=== PATIENT | male | born 1945 | race Caucasian/White ===

== ENCOUNTER 2020-10-06 06:59 | Day surgery (SDC) | payer MEDICARE ==
[2020-10-05 08:43] LABS: BASOPHILS % (AUTO) 0.6 % (0-1); EOSINOPHILS # (AUTO) 0.1 X10'3 (0-0.9); EOSINOPHILS % (AUTO) 2.2 % (0-6); HEMATOCRIT 45.2 % (42.0-52.0); HEMOGLOBIN 15.3 g/dl (14.0-17.9); LYMPHOCYTES # (AUTO) 1.2 X10'3 (1.1-4.8); LYMPHOCYTES % (AUTO) 22.8 % (21-51); MEAN CORPUSCULAR HEMOGLOBIN 31.2 PG (27.0-31.0); MEAN CORPUSCULAR HGB CONC 33.7 g/dL (33.0-36.5); MEAN CORPUSCULAR VOLUME 92.5 FL (78-98); MEAN PLATELET VOLUME 7.8 FL (7.4-10.4); MONOCYTES # (AUTO) 0.6 X10'3 (0-0.9); MONOCYTES % (AUTO) 10.9 % (2-12); NEUTROPHILS # (AUTO) 3.3 X10'3 (1.8-7.7); NEUTROPHILS % (AUTO) 63.5 % (42-75); PLATELET COUNT 219 X10'3 (140-440); RED BLOOD COUNT 4.89 X10'6 (4.70-6.10); RED CELL DISTRIBUTION WIDTH 13.3 % (11.5-14.5); WHITE BLOOD COUNT 5.2 X10'3 (4.5-11.0)
[2020-10-05 08:56] LABS: ALBUMIN 3.7 G/DL (3.4-5.0); ANION GAP 9 (8-16); BLOOD UREA NITROGEN 28 MG/DL (7-18); BUN/CREATININE RATIO 32.6 (5.4-32.0); CALCIUM 9.4 MG/DL (8.5-10.1); CHLORIDE 104 MMOL/L (99-107); CREATININE 0.86 MG/DL (0.60-1.10); GLUCOSE 122 MG/DL (70-104); POTASSIUM 4.1 MMOL/L (3.5-5.1); SODIUM 141 MMOL/L (135-145); eGFR 87 ML/MIN
[2020-10-05 08:59] LABS: PARTIAL THROMBOPLASTIN TIME 26 SECONDS (22-32)
[~2020-10-06] VITALS: Ht 167.6 cm; Wt 76.9 kg
[2020-10-06] VITALS (14 sets, daily range): BP systolic 91–168; BP diastolic 58–82
[2020-10-06] MEDS ORDERED: LORazepam 0.5 MG tablet PO PRN (07:15)
[2020-10-06] MEDS ORDERED: diphenhydrAMINE 25mg capsule PO PRN (07:15)
[2020-10-06] MEDS ORDERED: normal saline 1,000 ML IV SCH (07:15)
[2020-10-06] MEDS ORDERED: MULT-227 PO (07:17)
[2020-10-06] MEDS ORDERED: VITA-268 PO (07:17)
[2020-10-06] MEDS ORDERED: FOSI20TA97 PO (07:17)
[2020-10-06] MEDS ORDERED: ATOR20TA PO (07:17)
[2020-10-06] MEDS ORDERED: ASPI-1265 PO (07:17)
[2020-10-06] MEDS ORDERED: nitroGLYCERIN-Tridil 50MG/D5W 250 ML IV ONE (07:22)
[2020-10-06] MEDS ORDERED: fentaNYL/PF 50MCG/1 ML 2ML syringe ONE (07:23)
[2020-10-06] MEDS ORDERED: verapamil 2.5 mg/ml inj IV ONE (07:23)
[2020-10-06] MEDS ORDERED: heparin 1,000unit/ml 10ml vial 10 ML ONE (07:23)
[2020-10-06] MEDS ORDERED: LIDOcaine 1% (10mg/ml)w/preservative injection 20ml MDV ONE (07:23)
[2020-10-06] MEDS ORDERED: midazolam 1 mg/ML 2ml injection ONE (07:23)
[2020-10-06] MEDS ORDERED: IOHEXOL 350 MG/ML INFUS..BTL 75ML IV ONE ×2 (07:24→09:38)
[2020-10-06] MEDS ORDERED: iohexol 350MG/ML 100ml bottle IV ONE ×2 (07:24→09:00)
[2020-10-06] MEDS ORDERED: LIDOcaine/PRILOcaine 5gm cream TP ONE ×2 (07:30→07:44)
[2020-10-06] MEDS ORDERED: diphenhydrAMINE 25mg capsule PO ONE (07:44)
[2020-10-06] MEDS ORDERED: LORazepam 0.5 MG tablet ONE (07:44)
[2020-10-06] MEDS ORDERED: heparin 25,000 UNIT/250ml bag 250 ML IV ONE (09:00)
[2020-10-06] MEDS ORDERED: clopidogrel 300mg tablet ONE (09:56)
[2020-10-06 10:21] LABS: ISTAT HGB ART 15.3 g/dl (14.0-18.0); ISTAT Hct ART 45 %PCV (42-52); ISTAT O2 SATURATION ARTERIAL 94 % (95-98); ISTAT SOURCE ART
[2020-10-06] MEDS ORDERED: HYDROcodone/acetaminophen 5mg/325mg tablet PO PRN (10:30)
[2020-10-06] MEDS ORDERED: HYDROcodone/acetaminophen 10/325mg tab PO PRN (10:30)
[2020-10-07 08:49] LABS: ISTAT Hct MIX 43 %PCV (42-52); ISTAT O2 SATURATION MIX VENOUS 71 % (60-80); ISTAT SOURCE VEN
== END 2020-10-06 17:52 | disposition home or self-care (01) ==
LOC: SSTAY O 06:59
PROVIDERS: ATTEND Internal Medicine Cardiovascular Disease
DX: R94.39 Abnormal result of other cardiovascular function study (principal); R06.02 Shortness of breath; I25.118 Atherosclerotic heart disease of native coronary artery with other forms of angina pectoris; I10 Essential (primary) hypertension; E78.49 Other hyperlipidemia; I35.0 Nonrheumatic aortic (valve) stenosis; Q21.1 Atrial septal defect; Z98.890 Other specified postprocedural states; Z72.89 Other problems related to lifestyle; Z79.899 Other long term (current) drug therapy; Z79.82 Long term (current) use of aspirin; Z80.9 Family history of malignant neoplasm, unspecified; Z83.1 Family history of other infectious and parasitic diseases
CPT/HCPCS: 36415; 76937; 80048; 82803; 85014; 85025; 85347; 85610; 85730; 93005; 93460; 99152; 99153; C1725; C1751; C1769; C1874; C1894; C9600; J1644; J2001; J2250; J3010; J7030; Q0163; Q9967; A4620; A5120; A6258; J3490

== ENCOUNTER 2024-04-16 06:03 | Day surgery (SDC) | payer MEDICARE ==
[2024-04-15 11:25] LABS: BASOPHILS % (AUTO) 0.3 % (0-1); EOSINOPHILS # (AUTO) 0.1 X10'3 (0-0.9); EOSINOPHILS % (AUTO) 0.9 % (0-6); HEMATOCRIT 42.9 % (42.0-52.0); HEMOGLOBIN 14.4 g/dl (14.0-17.9); LYMPHOCYTES # (AUTO) 1.1 X10'3 (1.1-4.8); LYMPHOCYTES % (AUTO) 14.9 % (21-51); MEAN CORPUSCULAR HEMOGLOBIN 31.9 PG (27.0-31.0); MEAN CORPUSCULAR HGB CONC 33.5 g/dL (33.0-36.5); MEAN CORPUSCULAR VOLUME 95.3 FL (78-98); MONOCYTES # (AUTO) 0.8 X10'3 (0-0.9); MONOCYTES % (AUTO) 10.3 % (2-12); NEUTROPHILS # (AUTO) 5.5 X10'3 (1.8-7.7); NEUTROPHILS % (AUTO) 73.6 % (42-75); PLATELET COUNT 290 X10'3 (140-440); WHITE BLOOD COUNT 7.5 X10'3 (4.5-11.0)
[2024-04-15 11:32] LABS: ALBUMIN 3.1 G/DL (3.4-5.0); ANION GAP 6 (8-16); BLOOD UREA NITROGEN 23 MG/DL (7-18); BUN/CREATININE RATIO 25.3 (10.0-20.0); CALCIUM 9.3 MG/DL (8.5-10.1); CHLORIDE 103 MMOL/L (99-107); CREATININE 0.91 MG/DL (0.60-1.10); GLUCOSE 102 MG/DL (70-104); POTASSIUM 3.9 MMOL/L (3.5-5.1); SODIUM 139 MMOL/L (135-145); TOTAL CARBON DIOXIDE 30.5 MMOL/L (24-32); eGFR 80 ML/MIN
[2024-04-15 11:48] LABS: APTT 25 SECONDS (22-32); INR 1.1 INR; PROTHROMBIN TIME 11.1 SECONDS (9.0-12.0)
[2024-04-16] VITALS (13 sets, daily range): BP systolic 123–143; BP diastolic 70–94; PULSE 58–71; RESP 12–17; TEMP 98; O2SAT 93–98
[~2024-04-16] VITALS: Ht 165.1 cm; Wt 77.9 kg
[~2024-04-16 06:03] MED LIST: ASPI-1265 PO; ATOR20TA PO; FOSI20TA97 PO; MULT-227 PO; VITA-268 PO
[2024-04-16] MEDS ORDERED: UBID200C18 PO (06:29)
[2024-04-16] MEDS ORDERED: CLOP75TA34 PO (06:29)
[2024-04-16] MEDS ORDERED: KRIL1CAP PO (06:29)
[2024-04-16] MEDS ORDERED: METO-395 PO (06:29)
[2024-04-16] MEDS ORDERED: LUTE1CAP5 PO (06:29)
[2024-04-16] MEDS: diphenhydrAMINE 25mg capsule PO PRN (07:31)
[2024-04-16] MEDS: normal saline 1,000 ML IV SCH (07:31)
[2024-04-16] MEDS: LORazepam 0.5 MG tablet PO PRN (07:31)
[2024-04-16] MEDS ORDERED: verapamil 2.5 mg/ml inj IV ONE (07:47)
[2024-04-16] MEDS ORDERED: LIDOcaine 1% (10mg/ml) 2ml vial ONE (07:47)
[2024-04-16] MEDS ORDERED: midazolam 1 mg/ML 2ml injection ONE (07:48)
[2024-04-16] MEDS ORDERED: fentaNYL/PF 50MCG/1 ML 2ML syringe ONE (07:48)
[2024-04-16] MEDS ORDERED: iohexol 350 MG/ML 50ML vial IV ONE (07:48)
[2024-04-16] MEDS ORDERED: heparin 1,000unit/ml 10ml vial 10 ML ONE (07:48)
[2024-04-16] MEDS ORDERED: iohexol 350MG/ML 100ml bottle IV ONE (07:48)
[2024-04-16] MEDS ORDERED: nitroGLYCERIN 500mcg/5mL D5W 5 ML IV ONE (07:52)
[2024-04-16] MEDS ORDERED: LIDOcaine 1% 30ml preserv. free vial ONE (08:33)
[2024-04-16 09:02] LABS: ISTAT HGB ART 13.9 g/dl (14.0-17.9); ISTAT Hct ART 41 %PCV (42-52); ISTAT O2 SATURATION ARTERIAL 95 % (95-98); ISTAT SOURCE ART
[2024-04-16] MEDS ORDERED: HYDROcodone/acetaminophen 5mg/325mg tablet PO PRN (10:00)
[2024-04-16] MEDS: HYDROcodone/acetaminophen 10/325mg tab PO PRN (10:53)
[2024-04-16] MEDS: normal saline 1000ml 1,000 ML IV ONE (10:55)
[2024-04-17 07:18] LABS: ISTAT HGB MIX 13.9 g/dl (14.0-17.9); ISTAT Hct MIX 41 %PCV (42-52); ISTAT O2 SATURATION MIX VENOUS 66 % (60-80); ISTAT SOURCE BLNK
== END 2024-04-16 16:15 | disposition home or self-care (01) ==
LOC: SSTAY O 06:03
PROVIDERS: ATTEND Internal Medicine Cardiovascular Disease
DX: I35.0 Nonrheumatic aortic (valve) stenosis (principal); I25.10 Atherosclerotic heart disease of native coronary artery without angina pectoris; I10 Essential (primary) hypertension; E78.5 Hyperlipidemia, unspecified; Z79.82 Long term (current) use of aspirin; Z79.899 Other long term (current) drug therapy; Z90.49 Acquired absence of other specified parts of digestive tract; Z95.5 Presence of coronary angioplasty implant and graft; Z98.890 Other specified postprocedural states
CPT/HCPCS: 36415; 80048; 82803; 85014; 85025; 85610; 85730; 93005; 93460; 99152; 99153; A6258; A6402; C1725; C1751; C1769; C1894; J1644; J2001; J2250; J3010; J3490; J7030; Q0163; Q9967; Z7610; 76937; A6449

== ENCOUNTER 2024-05-13 09:32 | Outpatient (CLI) | payer MEDICARE ==
[~2024-05-13 09:32] MED LIST changes: +CLOP75TA34 PO; +IODIXANOL 320 MG/ML INFUS..BTL 100ML IV ONE; +KRIL1CAP PO; +LUTE1CAP5 PO; -MULT-227 PO; +UBID200C18 PO; -VITA-268 PO
[2024-05-13 10:11] LABS: BASOPHILS # (AUTO) 0.1 X10'3 (0-0.2); BASOPHILS % (AUTO) 0.7 % (0-1); EOSINOPHILS # (AUTO) 0.2 X10'3 (0-0.9); EOSINOPHILS % (AUTO) 1.6 % (0-6); HEMATOCRIT 45.7 % (42.0-52.0); HEMOGLOBIN 15.6 g/dl (14.0-17.9); LYMPHOCYTES # (AUTO) 1.8 X10'3 (1.1-4.8); LYMPHOCYTES % (AUTO) 17.7 % (21-51); MEAN CORPUSCULAR HEMOGLOBIN 31.5 PG (27.0-31.0); MEAN CORPUSCULAR VOLUME 92.7 FL (78-98); MONOCYTES # (AUTO) 0.8 X10'3 (0-0.9); MONOCYTES % (AUTO) 8.3 % (2-12); NEUTROPHILS # (AUTO) 7.1 X10'3 (1.8-7.7); NEUTROPHILS % (AUTO) 71.7 % (42-75); PLATELET COUNT 296 X10'3 (140-440); RED BLOOD COUNT 4.93 X10'6 (4.70-6.10); RED CELL DISTRIBUTION WIDTH 13.3 % (11.5-14.5); WHITE BLOOD COUNT 9.9 X10'3 (4.5-11.0)
[2024-05-13 10:25] LABS: APTT 22 SECONDS (22-32); PROTHROMBIN TIME 10.5 SECONDS (9.0-12.0)
[2024-05-13 10:27] LABS: ALANINE AMINOTRANSFERASE 84 U/L (12-78); ALBUMIN 3.2 G/DL (3.4-5.0); ALBUMIN/GLOBULIN RATIO 0.8 (1.1-1.5); ALKALINE PHOSPHATASE 62 IU/L (46-116); ANION GAP 5 (8-16); ASPARTATE AMINO TRANSFERASE 26 U/L (10-37); BILIRUBIN,TOTAL 1.2 MG/DL (0.1-1.0); BLOOD UREA NITROGEN 23 MG/DL (7-18); BUN/CREATININE RATIO 21.3 (10.0-20.0); CALCIUM 9.1 MG/DL (8.5-10.1); CHLORIDE 104 MMOL/L (99-107); CREATININE 1.08 MG/DL (0.60-1.10); GLUCOSE 110 MG/DL (70-104); POTASSIUM 3.9 MMOL/L (3.5-5.1); SODIUM 141 MMOL/L (135-145); TOTAL CARBON DIOXIDE 31.6 MMOL/L (24-32); TOTAL PROTEIN 7.1 G/DL (6.4-8.2); eGFR 66 ML/MIN
[2024-05-13 10:34] LABS: PRO BRAIN NATRIURETIC PEPTIDE 163 PG/ML (0-450)
== END 2024-05-13 23:59 | disposition home or self-care (01) ==
LOC: RAD 09:32
PROVIDERS: ATTEND Internal Medicine Cardiovascular Disease
DX: I65.23 Occlusion and stenosis of bilateral carotid arteries (principal); K40.90 Unilateral inguinal hernia, without obstruction or gangrene, not specified as recurrent; I35.0 Nonrheumatic aortic (valve) stenosis; R06.02 Shortness of breath; I77.810 Thoracic aortic ectasia; N20.0 Calculus of kidney; K57.30 Diverticulosis of large intestine without perforation or abscess without bleeding
CPT/HCPCS: 36415; 71046; 71270; 74174; 75572; 80053; 83880; 85025; 85610; 85730; 93880; Q9967

== ENCOUNTER 2024-06-27 05:32 | Inpatient (IN) | payer MEDICARE ==
[2024-06-19 11:19] LABS: BASOPHILS % (AUTO) 0.7 % (0-1); EOSINOPHILS # (AUTO) 0.2 X10'3 (0-0.9); EOSINOPHILS % (AUTO) 2.2 % (0-6); LYMPHOCYTES # (AUTO) 1.4 X10'3 (1.1-4.8); LYMPHOCYTES % (AUTO) 20.4 % (21-51); MEAN CORPUSCULAR HEMOGLOBIN 31.3 PG (27.0-31.0); MEAN CORPUSCULAR HGB CONC 33.9 g/dL (33.0-36.5); MEAN CORPUSCULAR VOLUME 92.3 FL (78-98); MEAN PLATELET VOLUME 7.4 FL (7.4-10.4); MONOCYTES # (AUTO) 0.8 X10'3 (0-0.9); MONOCYTES % (AUTO) 11.4 % (2-12); NEUTROPHILS # (AUTO) 4.5 X10'3 (1.8-7.7); NEUTROPHILS % (AUTO) 65.3 % (42-75); PRE OP HEMOGLOBIN 15.6 g/dL (14.0-17.9); PRE OP PLATELET COUNT 192 X10'3 (140-440); PRE OP WHITE BLOOD COUNT 6.9 10'3 (4.8-10.8); RED BLOOD COUNT 4.98 X10'6 (4.70-6.10)
[2024-06-19 11:25] LABS: BILIRUBIN,URINE NEGATIVE (Neg); CLARITY,URINE CLEAR (Clear); COLOR,URINE YELLOW (Yellow); GLUCOSE, URINE NEGATIVE (Neg); KETONES,URINE NEGATIVE (Neg); LEUKOCYTE ESTERASE ,URINE NEGATIVE (Neg); NITRITES, URINE NEGATIVE (Neg); OCCULT BLOOD,URINE NEGATIVE (Neg); PROTEIN,URINE NEGATIVE (Neg); UROBILINOGEN,URINE 0.2 E.U/dL (0.2-1.0)
[2024-06-19 11:33] LABS: UA COLLECTION TYPE CLN CATCH MIDSTREAM
[2024-06-19 11:40] LABS: ALBUMIN 3.6 G/DL (3.4-5.0); ALKALINE PHOSPHATASE 57 IU/L (46-116); BLOOD UREA NITROGEN 17 MG/DL (7-18); CALCIUM 9.3 MG/DL (8.5-10.1); CHLORIDE 104 MMOL/L (99-107); CREATININE 0.85 MG/DL (0.60-1.10); PRE OP ALT 46 U/L (30-65); PRE OP ANION GAP 6 (8-16); PRE OP AST 23 U/L (10-37); PRE OP BILIRUB, TOTAL 1.5 MG/DL (0.0-1.0); PRE OP GLUCOSE 87 MG/DL (70-104); PRE OP POTASSIUM 4.3 MMOL/L (3.4-5.1); PRE OP PROTIME 10.3 SECONDS (9.0-12.0); PRE OP SODIUM 140 MMOL/L (135-145); PRO BRAIN NATRIURETIC PEPTIDE 180 PG/ML (0-450); TOTAL PROTEIN 7.3 G/DL (6.4-8.2); eGFR 87 ML/MIN
[2024-06-27] VITALS (29 sets, daily range): BP systolic 107–198; BP diastolic 58–104; PULSE 58–86; RESP 12–20; TEMP 79.9–98.8; O2SAT 93–100
[~2024-06-27] VITALS: Ht 167.6 cm; Wt 79.9 kg
[2024-06-27] MEDS: VANCOMYCIN 1,500MG inj. 1,500 MG in normal saline 500ml IV soln 300 ML IV ONE (05:30)
[2024-06-27] MEDS: phenylephrine inj 50 MG in normal saline 250ml IV solN IV SCH (05:30)
[2024-06-27] MEDS: DOCUMENT DATE & TIME OF BETA-BLOCKER PO ONE (05:30)
[2024-06-27] MEDS: nitroPRUSSIDE (NIPRIDE) (200MCG/ML) 100ML Drip IV SCH (05:30)
[2024-06-27] MEDS: aspirin 325mg tablet PO ONE (05:30)
[~2024-06-27 05:32] MED LIST changes: -IODIXANOL 320 MG/ML INFUS..BTL 100ML IV ONE; -KRIL1CAP PO; -LUTE1CAP5 PO; +METO-395 PO; -UBID200C18 PO; +ondansetron/PF 4mg/2ml inj IV PRN
[2024-06-27] MEDS: famotidine 20mg tablet PO ONE (06:03)
[2024-06-27] MEDS: ringers solution, lacted 1,000 ML IV SCH ×2 (06:04→08:50)
[2024-06-27] MEDS: ceFAZolin 2gm in dextrose, iso 50 ML IV ONE (06:04)
[2024-06-27] MEDS ORDERED: protamine sulfate 10mg/ml inj. ONE (06:27)
[2024-06-27] MEDS ORDERED: iohexol 350MG/ML 100ml bottle IV ONE (06:39)
[2024-06-27] MEDS ORDERED: LIDOcaine 1% 30ml preserv. free vial ONE (06:39)
[2024-06-27] MEDS ORDERED: heparin 1,000 UNITS/NS 500ml 1,500 ML ONE (06:39)
[2024-06-27] MEDS ORDERED: heparin 1,000 units/ml 10ml inj ONE (07:10)
[2024-06-27] MEDS ORDERED: fentaNYL/PF 50MCG/1 ML 2ML syringe ONE (07:17)
[2024-06-27] MEDS ORDERED: midazolam 1 mg/ML 2ml injection ONE (07:45)
[2024-06-27] MEDS ORDERED: propofol inj 20 ML IV ONE ×2 (07:45→07:46)
[2024-06-27] MEDS: lisinopril 20mg tablet PO SCH (08:00)
[2024-06-27] MEDS ORDERED: potassium CL 10mEq/100ml bag 100 ML IV PRN (08:35)
[2024-06-27] MEDS ORDERED: magnesium sulf-water 2g/50mL 50 ML IV PRN (08:35)
[2024-06-27] MEDS ORDERED: docusate sod 100mg capsule PO PRN (08:35)
[2024-06-27] MEDS ORDERED: pantoprazole 40mg Tablet.DR PO PRN (08:35)
[2024-06-27] MEDS ORDERED: potassium Cl 20mEq/100mL bag 100 ML IV PRN (08:35)
[2024-06-27] MEDS ORDERED: acetaminophen 325mg tablet PO PRN (08:35)
[2024-06-27] MEDS ORDERED: ALPRAZolam 0.25mg tablet PO PRN (08:35)
[2024-06-27] MEDS ORDERED: diphenhydrAMINE 25mg capsule PO PRN (08:35)
[2024-06-27] MEDS ORDERED: magnesium sulf-water 4G/100mL 100 ML IV PRN (08:35)
[2024-06-27] MEDS ORDERED: ondansetron/PF 4mg/2ml inj IV PRN ×2 (08:35→08:50)
[2024-06-27] MEDS ORDERED: potassium Cl 40MEQ/1/2NS 520ml 520 ML IV PRN (08:35)
[2024-06-27] MEDS ORDERED: potassium Cl 20 mEq SR tablet PO PRN (08:35)
[2024-06-27] MEDS ORDERED: proCHLORperazine 10 MG/2 ml inj IV PRN ×2 (08:35→08:50)
[2024-06-27] MEDS ORDERED: potassium Cl 40MEQ/270ML bag 250 ML IV PRN (08:35)
[2024-06-27] MEDS ORDERED: labetalol 20mg/4ml (5mg/ml) syringe IV PRN (08:35)
[2024-06-27] MEDS ORDERED: morphine 2 MG/ML inj. syringe IV PRN (08:50)
[2024-06-27] MEDS ORDERED: morphine 4 MG/ML inj SYRINge IV PRN (08:50)
[2024-06-27] MEDS ORDERED: HYDROmorphone/PF 0.2 MG/ML SYRINGE IV PRN (08:50)
[2024-06-27] MEDS ORDERED: meperidine/PF 25mg/ml syringe IV PRN (08:50)
[2024-06-27] MEDS: hydrALAZINE 20mg/ml inj. IV PRN (09:13)
[2024-06-27] MEDS: acetaminophen 1,000mg/100ml IV 100 ML IV ONE (09:44)
[2024-06-27] MEDS: HYDROmorphone/PF 0.2 MG/ML SYRINGE IV PRN (09:45)
[2024-06-27] MEDS: hydrALAZINE 20mg/ml inj. ONE (09:45)
[2024-06-27] MEDS: HYDROcodone/acetaminophen 5mg/325mg tablet PO PRN (13:04)
[2024-06-27] MEDS: normal saline 1000ml 1,000 ML IV SCH (15:37)
[2024-06-27] MEDS: ceFAZolin/D5W- 1GM premix 50 ML IV SCH (16:47)
[2024-06-27] MEDS: sod chloride 0.9% 10ml flush syringe IV SCH (16:47)
[2024-06-27] MEDS: VANCOMYCIN 1GM 200ML H20 (PEG) 200 ML IV SCH (19:44)
[2024-06-28 02:00] VITALS: BP 125/71; PULSE 85; RESP 23; TEMP 97.6; O2SAT 95
[2024-06-28] MEDS ORDERED: vancomycin/NS 1 GM ADD-VANTAGE 250 ML IV SCH (03:30)
[2024-06-28 06:00] VITALS: BP 154/84; PULSE 74; RESP 17; TEMP 98.1; O2SAT 96
[2024-06-28] MEDS: vancomycin/NS 1 GM ADD-VANTAGE 250 ML IV SCH (07:23)
[2024-06-28] MEDS: atorvastatin 20mg tablet PO SCH (07:26)
[2024-06-28] MEDS: aspirin 81mg tab.chew PO SCH ×2 (07:27→08:00)
[2024-06-28] MEDS: clopidogrel 75mg tablet PO SCH (07:27)
[2024-06-28] MEDS: metoprolol succinate 25mg (24-HOUR) SR. Tablet PO SCH (07:28)
[2024-06-28 08:12] LABS: BASOPHILS % (AUTO) 0.3 % (0-1); EOSINOPHILS % (AUTO) 0.4 % (0-6); HEMATOCRIT 42.5 % (42.0-52.0); HEMOGLOBIN 14.8 g/dl (14.0-17.9); LYMPHOCYTES # (AUTO) 0.7 X10'3 (1.1-4.8); LYMPHOCYTES % (AUTO) 7.5 % (21-51); MEAN CORPUSCULAR HEMOGLOBIN 31.7 PG (27.0-31.0); MEAN CORPUSCULAR HGB CONC 34.9 g/dL (33.0-36.5); MEAN CORPUSCULAR VOLUME 90.9 FL (78-98); MEAN PLATELET VOLUME 7.3 FL (7.4-10.4); MONOCYTES # (AUTO) 1.4 X10'3 (0-0.9); MONOCYTES % (AUTO) 13.9 % (2-12); NEUTROPHILS # (AUTO) 7.7 X10'3 (1.8-7.7); NEUTROPHILS % (AUTO) 77.9 % (42-75); PLATELET COUNT 169 X10'3 (140-440); RED BLOOD COUNT 4.68 X10'6 (4.70-6.10); WHITE BLOOD COUNT 9.8 X10'3 (4.5-11.0)
[2024-06-28 08:39] VITALS: RESP 17; O2SAT 96
[2024-06-28 08:40] LABS: ALANINE AMINOTRANSFERASE 31 U/L (12-78); ALBUMIN 3.1 G/DL (3.4-5.0); ALBUMIN/GLOBULIN RATIO 0.9 (1.1-1.5); ALKALINE PHOSPHATASE 56 IU/L (46-116); ANION GAP 7 (8-16); ASPARTATE AMINO TRANSFERASE 21 U/L (10-37); BILIRUBIN,TOTAL 2.7 MG/DL (0.1-1.0); BLOOD UREA NITROGEN 13 MG/DL (7-18); BUN/CREATININE RATIO 14.9 (10.0-20.0); CALCIUM 8.7 MG/DL (8.5-10.1); CHLORIDE 104 MMOL/L (99-107); CREATININE 0.87 MG/DL (0.60-1.10); GLUCOSE 105 MG/DL (70-104); MAGNESIUM 1.9 MG/DL (1.5-2.4); PRO BRAIN NATRIURETIC PEPTIDE 403 PG/ML (0-450); SODIUM 138 MMOL/L (135-145); TOTAL CARBON DIOXIDE 27.5 MMOL/L (24-32); TOTAL PROTEIN 6.6 G/DL (6.4-8.2); eCRCL 62 ML/MIN; eGFR 85 ML/MIN
[2024-06-28 11:00] VITALS: BP 125/66; PULSE 78; RESP 23; TEMP 99.1; O2SAT 94
== END 2024-06-28 15:07 | disposition home or self-care (01) | DRG 266 ==
LOC: PAS IN 05:32 → EDSTATUS 07:30 → PCU 3S 15:38
PROVIDERS: ADMIT Internal Medicine Cardiovascular Disease; ATTEND Internal Medicine Cardiovascular Disease
PROC: B41D1ZZ Fluoroscopy of Aorta and Bilateral Lower Extremity Arteries using Low Osmolar Contrast (ICD-10-PCS; 2024-06-27)
PROC: 03HY32Z Insertion of Monitoring Device into Upper Artery, Percutaneous Approach (ICD-10-PCS; 2024-06-27)
PROC: 02RF38Z Replacement of Aortic Valve with Zooplastic Tissue, Percutaneous Approach (ICD-10-PCS; principal; 2024-06-27 07:10)
DX: I35.0 Nonrheumatic aortic (valve) stenosis (principal); Z00.6 Encounter for examination for normal comparison and control in clinical research program; I50.33 Acute on chronic diastolic (congestive) heart failure; I10 Essential (primary) hypertension; I71.20 Thoracic aortic aneurysm, without rupture, unspecified; I25.10 Atherosclerotic heart disease of native coronary artery without angina pectoris; E78.5 Hyperlipidemia, unspecified; I44.7 Left bundle-branch block, unspecified; Z98.61 Coronary angioplasty status; I11.0 Hypertensive heart disease with heart failure
CPT/HCPCS: 33361; 36415; 71045; 71046; 76937; 80053; 81003; 82948; 83735; 83880; 85025; 85610; 85730; 86885; 86900; 86901; 86920; 87081; 93005; 93308; A4618; A6258; A6449; C1756; C1760; C1769; C1894; G0378; J0131; J0360; J0690; J1171; J1644; J2003; J2250; J2371; J2704; J2720; J3010; J3370; J3372; J3490; J7030; J7040; J7050; J7120; Q9967